=== PATIENT | male | born 1945 | race Caucasian/White ===

== ENCOUNTER 2018-03-22 17:46 | Inpatient (IN) | payer OTHER ==
[~2018-03-22] VITALS: Ht 172.7 cm; Wt 70.8 kg
[2018-03-22 17:48] VITALS: BP_SYST 79; BP_SYST 90; BP_DIAS 40; BP_DIAS 54
[2018-03-22] MEDS ORDERED: NACL 0.9% 500 ML IV SCH (17:54)
[2018-03-22 18:27] LABS: BASOPHILS % (AUTO) 0.1 % (0.0-2.0); LYMPHOCYTES # (AUTO) 0.9 K/uL (2.0-11.5); LYMPHOCYTES % (AUTO) 11.4 % (20.5-51.1); MEAN CORPUSCULAR HEMOGLOBIN 33 pg (27-31); MEAN CORPUSCULAR HGB CONC 34 g/dL (33-37); MEAN CORPUSCULAR VOLUME 97.7 fL (80-94); MONOCYTES # (AUTO) 0.3 K/uL (0.8-1.0); MONOCYTES % (AUTO) 4.1 % (1.7-9.3); NEUTROPHILS # (AUTO) 6.5 K/uL (1.8-7.7); NEUTROPHILS % (AUTO) 84.4 % (42.2-75.2); PLATELET COUNT (AUTO) 73 K/uL (140-450); RED BLOOD CELL COUNT(AUTO) 1.22 MIL/uL (4.20-6.10); RED CELL DISTRIBUTION WIDTH 16.4 % (11.6-13.7); WHITE BLOOD COUNT (AUTO) 7.7 K/uL (4.8-10.8)
[2018-03-22 18:47] LABS: ANION GAP 15.8 (8-16); CARBON DIOXIDE 19.4 mmol/L (21-32); CREATININE 1.5 mg/dL (0.7-1.3); POTASSIUM 4.2 mmol/L (3.5-5.1)
[2018-03-22 18:48] LABS: HEMATOCRIT 11.9 % (36-52)
[2018-03-22 18:52] LABS: ALBUMIN 2.3 g/dL (3.4-5.0); PROTHROMBIN TIME 12.1 secs (10.8-13.4); TOTAL BILIRUBIN 0.3 mg/dL (0.0-1.0)
[2018-03-22] MEDS ORDERED: NACL 0.9% 500 ML IV ONE (18:55)
[2018-03-22] MEDS ORDERED: NACL 0.9% 1,500 ML IV ONE (19:10)
[2018-03-22] MEDS ORDERED: PIPERACILLIN/TAZOBACTAM 3.375 GM in DEXTROSE 5% 50 ML IV ONE (19:10)
[2018-03-22] MEDS ORDERED: PIPERACILLIN/TAZOBACTAM 3.375 GM VIAL IV ONE (19:25)
[2018-03-22 22:46] VITALS: BP 107/47
[2018-03-22 22:54] LABS: APPEARANCE,URINE CLEAR (CLEAR); BILIRUBIN,URINE NEGATIVE (NEGATIVE); BLOOD, URINE NEGATIVE (NEGATIVE); COLOR,URINE YELLOW (YELLOW); LEUKOCYTE ESTERASE ,URINE NEGATIVE (NEGATIVE); NITRITE, URINE NEGATIVE (NEGATIVE); PH,URINE 5.5 (5.0-9.0); UGLUCOSE 2+ (NEGATIVE)
[2018-03-22] MEDS ORDERED: TEMAZEPAM 15 MG CAP PO PRN (23:50)
[2018-03-22] MEDS ORDERED: ACETAMINOPHEN 325 MG TAB PO PRN (23:50)
[2018-03-22] MEDS ORDERED: PNEUMOCOCCAL VACCINE 23 MCG/0.5 ML VIAL IMVAC PRN (23:55)
[2018-03-23] VITALS (8 sets, daily range): BP systolic 84–149; BP diastolic 37–60
[2018-03-23] MEDS ORDERED: CALCIUM CARBONATE 500 MG TAB.CHEW PO SCH (03:00)
[2018-03-23] MEDS: NACL 0.45% 1,000 ML IV SCH ×2 (05:24→15:49)
[2018-03-23 07:29] LABS: BASOPHILS % (AUTO) 0.2 % (0.0-2.0); EOSINOPHILS % (AUTO) 0.1 % (0.0-4.0); LYMPHOCYTES # (AUTO) 1.4 K/uL (2.0-11.5); LYMPHOCYTES % (AUTO) 14.4 % (20.5-51.1); MEAN CORPUSCULAR HEMOGLOBIN 30 pg (27-31); MEAN CORPUSCULAR HGB CONC 34 g/dL (33-37); MEAN CORPUSCULAR VOLUME 90.4 fL (80-94); MONOCYTES # (AUTO) 0.8 K/uL (0.8-1.0); MONOCYTES % (AUTO) 8.1 % (1.7-9.3); NEUTROPHILS # (AUTO) 7.6 K/uL (1.8-7.7); NEUTROPHILS % (AUTO) 77.2 % (42.2-75.2); PLATELET COUNT (AUTO) 60 K/uL (140-450); RED BLOOD CELL COUNT(AUTO) 1.84 MIL/uL (4.20-6.10); WHITE BLOOD COUNT (AUTO) 9.8 K/uL (4.8-10.8)
[2018-03-23 07:41] LABS: HEMATOCRIT 16.6 % (36-52); HEMOGLOBIN 5.6 g/dL (12.0-18.0)
[2018-03-23] MEDS ORDERED: RANOLAZINE 500 MG TER PO SCH (09:00)
[2018-03-23] MEDS ORDERED: PANTOPRAZOLE 40 MG INJ VIAL ONE (11:40)
[2018-03-23] MEDS: PANTOPRAZOLE 80 MG in NACL 0.9% 100 ML IV SCH ×2 (15:47→20:00)
[2018-03-23 17:49] LABS: HEMATOCRIT 22.1 % (36-52); HEMOGLOBIN 7.3 g/dL (12.0-18.0)
[2018-03-23] MEDS: LACTULOSE 20 GM/30 ML UDC PO SCH (21:04)
[2018-03-23] MEDS: TEMAZEPAM 15 MG CAP PO PRN (23:55)
[2018-03-24] MEDS: NACL 0.45% 1,000 ML IV SCH ×3 (01:53→22:04)
[2018-03-24 02:43] LABS: HEMATOCRIT 24.1 % (36-52)
[2018-03-24 04:44] VITALS: BP 137/68
[2018-03-24] MEDS: PANTOPRAZOLE 80 MG in NACL 0.9% 100 ML IV SCH (05:24)
[2018-03-24 07:17] LABS: HEMATOCRIT 24.2 % (36-52)
[2018-03-24 07:45] VITALS: BP 145/59
[2018-03-24] MEDS: LACTULOSE 20 GM/30 ML UDC PO SCH ×2 (09:12→21:23)
[2018-03-24] MEDS ORDERED: fentaNYL 0.05 MG/ML VIAL ONE (09:49)
[2018-03-24] MEDS ORDERED: MIDAZOLAM 2 MG/2 ML VIAL ONE (09:49)
[2018-03-24 12:00] VITALS: BP 139/43
[2018-03-24 12:31] LABS: HEMATOCRIT 25.2 % (36-52); HEMOGLOBIN 8.6 g/dL (12.0-18.0)
[2018-03-24] MEDS ORDERED: fentaNYL 0.05 MG/ML VIAL IVP ONE (12:45)
[2018-03-24] MEDS ORDERED: MIDAZOLAM 2 MG/2 ML VIAL IVP ONE (12:45)
[2018-03-24] MEDS: FERROUS SULFATE 325 MG TABEC PO SCH ×2 (12:47→16:21)
[2018-03-24] MEDS: SUCRALFATE 1 GM TAB PO SCH ×3 (12:48→21:22)
[2018-03-24 16:00] VITALS: BP 151/56
[2018-03-24 17:57] LABS: HEMATOCRIT 26.4 % (36-52); HEMOGLOBIN 8.8 g/dL (12.0-18.0)
[2018-03-24 20:18] VITALS: BP 155/66
[2018-03-24] MEDS: PANTOPRAZOLE 40 MG INJ VIAL IVP SCH (21:22)
[2018-03-24] MEDS: TEMAZEPAM 15 MG CAP PO PRN (21:23)
[2018-03-25 00:15] VITALS: BP 126/73
[2018-03-25 01:01] LABS: HEMATOCRIT 24.2 % (36-52); HEMOGLOBIN 8.1 g/dL (12.0-18.0)
[2018-03-25 04:22] VITALS: BP 131/70
[2018-03-25 07:12] LABS: BASOPHILS % (AUTO) 0.4 % (0.0-2.0); EOSINOPHILS # (AUTO) 0.1 K/uL (0-0.4); EOSINOPHILS % (AUTO) 1.6 % (0.0-4.0); HEMOGLOBIN 9.3 g/dL (12.0-18.0); LYMPHOCYTES # (AUTO) 1.2 K/uL (2.0-11.5); LYMPHOCYTES % (AUTO) 15.8 % (20.5-51.1); MEAN CORPUSCULAR HEMOGLOBIN 30 pg (27-31); MEAN CORPUSCULAR HGB CONC 33 g/dL (33-37); MONOCYTES # (AUTO) 0.7 K/uL (0.8-1.0); MONOCYTES % (AUTO) 8.6 % (1.7-9.3); NEUTROPHILS # (AUTO) 5.5 K/uL (1.8-7.7); NEUTROPHILS % (AUTO) 73.6 % (42.2-75.2); PLATELET COUNT (AUTO) 86 K/uL (140-450); RED BLOOD CELL COUNT(AUTO) 3.08 MIL/uL (4.20-6.10); RED CELL DISTRIBUTION WIDTH 16.3 % (11.6-13.7); WHITE BLOOD COUNT (AUTO) 7.5 K/uL (4.8-10.8)
[2018-03-25] MEDS: NACL 0.45% 1,000 ML IV SCH ×3 (07:53→22:14)
[2018-03-25 07:56] LABS: ALBUMIN 2.7 g/dL (3.4-5.0); ANION GAP 11.4 (8-16); CARBON DIOXIDE 24.8 mmol/L (21-32); CREATININE 0.9 mg/dL (0.7-1.3); POTASSIUM 3.2 mmol/L (3.5-5.1); TOTAL BILIRUBIN 0.9 mg/dL (0.0-1.0)
[2018-03-25 08:00] VITALS: BP 148/62
[2018-03-25] MEDS ORDERED: POTASSIUM CHLORIDE 10 MEQ TABER PO SCH (08:30)
[2018-03-25] MEDS: FERROUS SULFATE 325 MG TABEC PO SCH ×3 (08:49→16:35)
[2018-03-25] MEDS: SENNA 8.6 MG TAB PO SCH (08:50)
[2018-03-25] MEDS: SUCRALFATE 1 GM TAB PO SCH ×4 (08:50→20:07)
[2018-03-25] MEDS: PANTOPRAZOLE 40 MG INJ VIAL IVP SCH (08:50)
[2018-03-25] MEDS: LACTULOSE 20 GM/30 ML UDC PO SCH (08:50)
[2018-03-25 09:14] LABS: HEMATOCRIT 26.5 % (36-52); HEMOGLOBIN 8.7 g/dL (12.0-18.0)
[2018-03-25 12:00] VITALS: BP 146/59
[2018-03-25 16:00] VITALS: BP 152/77
[2018-03-25 20:00] VITALS: BP 148/77
[2018-03-25] MEDS: CARVEDILOL 3.125 MG TAB PO SCH (20:07)
[2018-03-25] MEDS: PANTOPRAZOLE 40 MG TABEC PO SCH (20:08)
[2018-03-25] MEDS ORDERED: ATORVASTATIN 20 MG TAB PO SCH (21:00)
[2018-03-25 21:35] LABS: HEMATOCRIT 26.8 % (36-52); HEMOGLOBIN 8.9 g/dL (12.0-18.0)
[2018-03-25] MEDS: TEMAZEPAM 15 MG CAP PO PRN (22:31)
[2018-03-26] VITALS: BP 115/64
[2018-03-26 04:00] VITALS: BP 115/67
[2018-03-26 06:01] LABS: BASOPHILS % (AUTO) 0.3 % (0.0-2.0); EOSINOPHILS # (AUTO) 0.2 K/uL (0-0.4); EOSINOPHILS % (AUTO) 2.4 % (0.0-4.0); HEMATOCRIT 25.1 % (36-52); HEMOGLOBIN 8.3 g/dL (12.0-18.0); LYMPHOCYTES % (AUTO) 15.3 % (20.5-51.1); MEAN CORPUSCULAR HEMOGLOBIN 31 pg (27-31); MEAN CORPUSCULAR HGB CONC 33 g/dL (33-37); MONOCYTES # (AUTO) 0.6 K/uL (0.8-1.0); MONOCYTES % (AUTO) 8.8 % (1.7-9.3); NEUTROPHILS # (AUTO) 4.8 K/uL (1.8-7.7); NEUTROPHILS % (AUTO) 73.2 % (42.2-75.2); PLATELET COUNT (AUTO) 91 K/uL (140-450); RED BLOOD CELL COUNT(AUTO) 2.73 MIL/uL (4.20-6.10); RED CELL DISTRIBUTION WIDTH 16.7 % (11.6-13.7); WHITE BLOOD COUNT (AUTO) 6.6 K/uL (4.8-10.8)
[2018-03-26 07:07] LABS: ALBUMIN 2.4 g/dL (3.4-5.0); ANION GAP 9.1 (8-16); CARBON DIOXIDE 25.7 mmol/L (21-32); CREATININE 0.9 mg/dL (0.7-1.3); POTASSIUM 3.8 mmol/L (3.5-5.1); TOTAL BILIRUBIN 0.8 mg/dL (0.0-1.0)
[2018-03-26 08:00] VITALS: BP 136/83
[2018-03-26] MEDS: NACL 0.45% 1,000 ML IV SCH (08:22)
[2018-03-26] MEDS: FERROUS SULFATE 325 MG TABEC PO SCH ×2 (08:23→12:11)
[2018-03-26] MEDS: SUCRALFATE 1 GM TAB PO SCH ×2 (08:23→12:11)
[2018-03-26] MEDS: SENNA 8.6 MG TAB PO SCH (08:23)
[2018-03-26] MEDS: PANTOPRAZOLE 40 MG TABEC PO SCH (08:23)
[2018-03-26] MEDS: CARVEDILOL 3.125 MG TAB PO SCH (08:24)
[2018-03-26] MEDS ORDERED: SUCR1TAB56 PO (08:55)
[2018-03-26] MEDS ORDERED: PANT40EC28 PO (08:55)
[2018-03-26] MEDS ORDERED: LACTULOSE 20 GM/30 ML UDC PO SCH (09:00)
[2018-03-26 09:52] LABS: HEMATOCRIT 26.3 % (36-52); HEMOGLOBIN 8.6 g/dL (12.0-18.0)
[2018-03-26 12:00] VITALS: BP 153/81
== END 2018-03-26 14:20 | disposition home or self-care (01) | DRG 377 ==
LOC: MED 17:46 → MTU 21:13
PROVIDERS: ADMIT Internal Medicine; ATTEND Internal Medicine
PROC: 30233N1 Transfusion of Nonautologous Red Blood Cells into Peripheral Vein, Percutaneous Approach (ICD-10-PCS; principal; 2018-03-22)
PROC: 0W3P8ZZ Control Bleeding in Gastrointestinal Tract, Via Natural or Artificial Opening Endoscopic (ICD-10-PCS; 2018-03-24 10:00)
DX: K28.4 Chronic or unspecified gastrojejunal ulcer with hemorrhage (principal); E43 Unspecified severe protein-calorie malnutrition; I21.A1 Myocardial infarction type 2; D62 Acute posthemorrhagic anemia; I95.9 Hypotension, unspecified; D69.6 Thrombocytopenia, unspecified; E86.0 Dehydration; D64.9 Anemia, unspecified; I45.10 Unspecified right bundle-branch block; E78.5 Hyperlipidemia, unspecified; K21.9 Gastro-esophageal reflux disease without esophagitis; I25.10 Atherosclerotic heart disease of native coronary artery without angina pectoris; I10 Essential (primary) hypertension; Z85.07 Personal history of malignant neoplasm of pancreas; Z87.11 Personal history of peptic ulcer disease; Z95.1 Presence of aortocoronary bypass graft; Z95.2 Presence of prosthetic heart valve; Z90.411 Acquired partial absence of pancreas; Z95.5 Presence of coronary angioplasty implant and graft; I25.2 Old myocardial infarction; Z93.4 Other artificial openings of gastrointestinal tract status; Z79.82 Long term (current) use of aspirin; Z86.79 Personal history of other diseases of the circulatory system; Z68.23 Body mass index [BMI] 23.0-23.9, adult
CPT/HCPCS: 36415; 71045; 80053; 81003; 82607; 82728; 82746; 83540; 83605; 83880; 84484; 85018; 85025; 85610; 85730; 86677; 86886; 86900; 86901; 86920; 87040; 87086; 90732; 93005; 96361; 96365; 99285; C9113; J2250; J2543; J3010; J7030; P9016; Q0092

== ENCOUNTER 2020-01-04 15:09 | Emergency (ER) | payer OTHER ==
[~2020-01-04] VITALS: Ht 175.3 cm; Wt 68.0 kg
[~2020-01-04 15:09] MED LIST: PANT40EC56 PO; SUCR1TAB56 PO
[2020-01-04 15:12] VITALS: BP 145/109
--- NOTE | 2020-01-04 15:18 | NUR ---
PT AMBULATED TO BED 4.
--- NOTE | 2020-01-04 15:20 | NUR ---
Pt c/o left arm mole started to bleed today as per pt. Wound dry, clean, and slight bleeding at this time. Patient denies having any pain on the wound area. hx--angina, cad, htn, neuropathy, remission pancreatic ca AAOX4 WITH EVEN AND STEADY GAIT; HR EVEN AND REGULAR; PT DENIES ANY FEVER, CP, SOB, OR COUGH AT THIS TIME; PATIENT STATES PAIN OF 0/10 AT THIS TIME; VSS; PATIENT POSITIONED FOR COMFORT; HOB ELEVATED; BEDRAILS UP X1; BED DOWN. ER MD MADE AWARE OF PT STATUS.
[2020-01-04] MEDS ORDERED: TRANEXAMIC ACID 1,000 MG/10 ML VIAL MC ONE (15:55)
[2020-01-04 16:48] VITALS: BP 135/91
--- NOTE | 2020-01-04 16:48 | NUR ---
Patient discharged with v/s stable. Written and verbal after care instructions given and explained. Patient verbalized understanding. Ambulatory with steady gait. All questions addressed prior to discharge. Advised to follow up with PMD. Addendum: 01/04/20 at 1649 by MED Amendment undone in ED - 01/04/20 at 1650 by MED PT'S WOUND ON LEFT FOREARM IS COVERED WITH DRESSING AND WARPED. Addendum: 01/04/20 at 1650 by MEDeOriginal PT'S WOUND ON LEFT FOREARM IS COVERED WITH DRESSING AND WRAPED.
== END 2020-01-04 16:50 | disposition home or self-care (01) ==
LOC: MED 15:09
DX: S51.802A Unspecified open wound of left forearm, initial encounter (principal); I11.0 Hypertensive heart disease with heart failure; Z85.07 Personal history of malignant neoplasm of pancreas; W22.8XXA Striking against or struck by other objects, initial encounter; Y93.89 Activity, other specified; Y92.89 Other specified places as the place of occurrence of the external cause; Y99.8 Other external cause status; Z79.899 Other long term (current) drug therapy
CPT/HCPCS: 99283; J3490; 99282

== ENCOUNTER 2020-06-07 22:55 | Observation (INO) | payer OTHER, SELFPAY ==
[~2020-06-07] VITALS: Ht 175.3 cm; Wt 68.0 kg
[~2020-06-07 22:55] MED LIST changes: +ACET-2619 PO; +AMLO5TAB PO; +ASPI-1822 PO; +FERR-252 PO; +GABA100C PO; +LISI2.5T12 PO; -PANT40EC56 PO; +RANEX500 PO; -SUCR1TAB56 PO; +TRA200 PO
--- NOTE | 2020-06-07 22:55 | NUR ---
PT ROLF ALS. TAKEN TO BED 9
[2020-06-07 22:58] VITALS: BP 157/71
--- NOTE | 2020-06-07 23:02 | NUR ---
74 YR OLD MALE BIBA FOR CC OF CHEST PAIN. PT IS AOX4. PT STATES 7/10 NON-RADIATING THROBBING CHEST PAIN THAT STARTED APPROXIMATELY 4-6 HOURS AGO. PT STATES TAKING 3 NITRO TABLETS BEFORE EMS ARRIVAL WITH NO RELIEF. PER EMS, EMS STATES ADMINISTERING AN ADDITIONAL NITRO WITH NO CHANGE. EMS STATES ADMINISTERED 4 81MG OF ASPIRIN. PT HEART SOUNDS WNL. PT DENIES OTHER MEDICAL COMPLAINTS. BED LOCKED IN LOWEST POSITION WITH 2 SIDE RAILS UP FOR SAFETY. WILL CONTINUE TO MONITOR. HISTORY- CA X 2, THORACIC ANUERYSM, PANCREATIC CA, AND HTN ALLERGIES- NONE
--- NOTE | 2020-06-07 23:20 | NUR ---
DEBO Padilla at bedside for medical evaluation.
--- NOTE | 2020-06-07 23:21 | NUR ---
EKG PERFORMED AT BEDSIDE. EKG READS SINUS RHYTHM @ 69
[2020-06-07] MEDS ORDERED: NITROGLYCERIN 0.4 MG TAB SL ONE (23:25)
[2020-06-07] MEDS ORDERED: MORPHINE SULFATE 4 MG/ML SYR IVP ONE (23:25)
[2020-06-07] MEDS ORDERED: ASPIRIN 81 MG TAB.CHEW PO ONE (23:25)
--- NOTE | 2020-06-07 23:31 | NUR ---
Xray at bedside.
[2020-06-07 23:44] LABS: BASOPHILS % (AUTO) 0.4 % (0.0-2.0); EOSINOPHILS # (AUTO) 0.1 K/uL (0-0.4); EOSINOPHILS % (AUTO) 1.3 % (0.0-4.0); HEMATOCRIT 28.5 % (36-52); HEMOGLOBIN 9.9 g/dL (12.0-18.0); LYMPHOCYTES % (AUTO) 20.8 % (20.5-51.1); MEAN CORPUSCULAR HEMOGLOBIN 36 pg (27-31); MEAN CORPUSCULAR HGB CONC 35 g/dL (33-37); MEAN CORPUSCULAR VOLUME 104.2 fL (80-94); MONOCYTES # (AUTO) 0.4 K/uL (0.8-1.0); MONOCYTES % (AUTO) 8.4 % (1.7-9.3); NEUTROPHILS # (AUTO) 3.4 K/uL (1.8-7.7); NEUTROPHILS % (AUTO) 69.1 % (42.2-75.2); PLATELET COUNT (AUTO) 130 K/uL (140-450); RED BLOOD CELL COUNT(AUTO) 2.74 MIL/uL (4.20-6.10); RED CELL DISTRIBUTION WIDTH 13.4 % (11.6-13.7); WHITE BLOOD COUNT (AUTO) 4.9 K/uL (4.8-10.8)
[2020-06-07 23:56] LABS: PROTHROMBIN TIME 11.3 secs (10.8-13.4)
--- NOTE | 2020-06-08 01:00 | NUR ---
PT WAS FOUND IN SEMI-CORRIGAN'S POSITION IN BED. PT STATES CHEST PAIN IS "A LITTLE BETTER" AND RATES IT 6/10. PT STATES NO OTHER MEDICAL COMPLAINTS. BED LOCKED IN LOWEST POSITION WITH 2 SIDE RAILS UP FOR SAFETY. WILL CONTINUE TO MONITOR.
[2020-06-08 01:06] LABS: ALBUMIN 3.8 g/dL (3.4-5.0); ANION GAP 14.9 (8-16); ASPARTATE AMINOTRANSFERASE 10 U/L (15-37); CARBON DIOXIDE 23.2 mmol/L (21-32); CHLORIDE 103 mmol/L (98-107); GLUCOSE 89 mg/dL (74-106); POTASSIUM 4.1 mmol/L (3.5-5.1); SODIUM SERUM 137 mmol/L (136-145); TOTAL BILIRUBIN 0.8 mg/dL (0.0-1.0); UREA NITROGEN, BLOOD 16 mg/dL (7-18)
[2020-06-08] MEDS ORDERED: TEMA15CA24 PO (02:18)
[2020-06-08] MEDS ORDERED: ATOR20TA PO (02:18)
[2020-06-08] MEDS ORDERED: hydrALAZINE 20 MG/ML VIAL IVP ONE (03:25)
--- NOTE | 2020-06-08 03:30 | NUR ---
EMT AT BEDSIDE FOR EKG.
--- NOTE | 2020-06-08 03:30 | NUR ---
PT WAS FOUND IN SEMI-CORRIGAN'S POSITION IN BED. PT STATES CHEST PAIN IS 5/10. PT STATES NO OTHER MEDICAL COMPLAINTS. BED LOCKED IN LOWEST POSITION WITH 2 SIDE RAILS UP FOR SAFETY. WILL CONTINUE TO MONITOR.
--- NOTE | 2020-06-08 03:36 | NUR ---
HANDMADE TILE ARTIST AT BEDSIDE.
--- NOTE | 2020-06-08 03:38 | NUR ---
EKG PERFORMED AT BEDSIDE. EKG READS SINUS RHYTHM @ 57
--- NOTE | 2020-06-08 04:00 | NUR ---
PT FOUND AWAKE IN SEMI-CORRIGAN'S POSITION IN BED. PT STATES 7/10 NON-RADIATING CHEST PAIN. PT STATES 8/10 NON-RADIATING BACK PAIN. ERMD AWARE.
[2020-06-08] MEDS ORDERED: HYDROcodone/APAP 5/325 MG 1 TAB TAB PO ONE (04:10)
--- NOTE | 2020-06-08 04:45 | NUR ---
PT FOUND AWAKE IN SEMI-CORRIGAN'S POSITION IN BED. PT STATES 5/10 NON-RADIATING CHEST PAIN. PT STATES 5/10 NON-RADIATING BACK PAIN. PT STATES CHEST AND BACK PAIN IS BETTER. PT WAS PROVIDED CHERRY.
--- NOTE | 2020-06-08 05:20 | NUR ---
PT STATES UNABLE TO SLEEP AND HAS LEG TWITCHING. DR. CORTEZ CONTACTED AND WAS UPDATED ON PT STATUS.
[2020-06-08] MEDS ORDERED: TEMAZEPAM 15 MG CAP PO ONE ×2 (05:40→23:10)
--- NOTE | 2020-06-08 06:47 | NUR ---
PT FOUND AWAKE IN SEMI-CORRIGAN'S POSITION IN BED. PT STATES CHEST AND BACK PAIN IS BETTER AND RATES CHEST AND BACK PAIN 4/10. PT DENIES OTHER MEDICAL COMPLAINTS. PT WAS PROVIDED A URINAL. BED LOCKED IN LOWEST POSITION WITH 2 SIDE RAILS UP FOR SAFETY.
--- NOTE | 2020-06-08 07:10 | NUR ---
TRANSFER OF CARE REPORT PROVIDED TO TRIP RITTER.
--- NOTE | 2020-06-08 07:50 | NUR ---
CALLED REPORT TO ARSH RITTER. WILL BE TAKING TO FLOOR SHORTLY.
--- NOTE | 2020-06-08 08:21 | NUR ---
Patient will be admitted to care of REMI V[facility]IL. Admited to TELEMETRY. Will go to [facility]. Belongings list completed. Report to ARSH RITTER.
[2020-06-08 08:25] VITALS: BP 121/72
--- NOTE | 2020-06-08 08:25 | NUR ---
RECEIVED PT FROM ED. PT RESTING IN BED. ABLE TO MAKE NEEDS KNOWN. RESPIRATIONS EVEN AND UNLABORED WITH NO SOB OR RESPIRATORY DISTRESS. IV SITE IN L ARM 20G IS CLEAN, DRY, AND INTACT. PT COMPLAINED OF IV PAIN IN RFA 22G, REMOVED INTACT IV CANNULA. PT TOLERATED WELL. MRSA SWAB COLLECTED. SAFETY MEASURES IN PLACE. WILL CONTINUE TO MONITOR
--- NOTE | 2020-06-08 11:30 | NUR ---
DC SOCIAL WORK PROGRAM COORDINATOR: SPOKE TO PATIENTS DAUGHTER SADA DANGELO [phone] SHE IS ABLE TO ARRANGE TRANSPORTATION FOR PATIENT WHEN PATIENT IS READY FOR DC. SHE WILL SET UP WITH AN UBER OR LYFT. NOTIFIED RIYA CABAN. Addendum: 06/09/20 at 1044 by Sammie Frederick CM DC SOCIAL WORK PROGRAM COORDINATOR: NOTIFIED RIYA LENNON THAT SHE CAN CONTACT PATIENTS DAUGHTER TO ARRANGE TRANSPORTATION
--- NOTE | 2020-06-08 11:55 | NUR ---
SOCIAL WORK NOTE: Patient's Orientation Person Situation Place Time Information Provided By PATIENT Comments SW WAS UNABLE TO MEET PATIENT AT BEDSIDE. SW COMPLETED ASSESSMENT WITH PATIENT TELEPHONICALLY. PATIENT STATED THAT HIS DAUGHTER WOULD BE PRIMARY POINT OF CONTACT. Healthcare Financial Analyst, Realtionship and Phone Number SADA DANGELO DAUGHTER [phone] [facility] Power of Assault Amphibious Vehicle Officer No Does Patient Have a POLST No Identifying Problems No Social Work Triggers Is A Social Work Consult Needed No Mandate Report Filed No Explanation Of Identifying Problems PATIENT IS A 74-YEAR-OLD MALE ADMITTED FOR CHEST PAIN. PATIENT HAS PMHX OF CAD, NE, AND HYPERTENSION. PATIENT STATED THAT HE LIVES AT [facility]. Admitted From Home Pre-Admission Level Of Functioning Status Independent/Ambulatory Prior Resources/Services Used In Last 12 Months No Prior Resources Used Prior DME No Prior DME Used Dialysis Comments N/A Living Situation Asst'd Living/Board &Care Other Living Situation/Comment PATIENT IS A RESIDENT OF [facility]. Patient Had Caregiver No Home Support No Caregiver Issues Financial Issues No Known Financial Issue Referral To The Financial Counselor Needed No Factors/Needs No D/C Needs Identified Pt/Rep Participated In Discharge Plan Yes Patient/Family Agress With Discharge Plan Yes Discharge Plan Comments TENTATIVE DISCHARGE PLAN IS FOR PATIENT TO RETURN HOME. DC Plan Status Initiated
[2020-06-08 13:37] VITALS: BP 162/74
[2020-06-08 16:00] VITALS: BP 191/84
[2020-06-08] MEDS ORDERED: LABETALOL 100 MG/20 ML VIAL IVP SCH (16:02)
--- NOTE | 2020-06-08 16:21 | NUR ---
PATIENT HAS BEEN SCREENED AND CATEGORIZED LOW NUTRITION RISK. PATIENT WILL BE SEEN WITHIN 7 DAYS OF ADMISSION. 06/14/[address]
--- NOTE | 2020-06-08 16:27 | NUR ---
NOTIFIED DR. Milo ARRIAGA REGARDING HIGH BP-191/86. HE ORDERED LABETALOL IV , WILL CONTINUE TO MONITOR. NOTIFIED DR. CORTEZ ALSO AND OK TO DC PATIENT TOMORROW IF BP IS CONTROL.
[2020-06-08] MEDS: amLODIPine 5 MG TAB PO SCH (17:11)
[2020-06-08 17:53] VITALS: BP 125/81
[2020-06-08] MEDS ORDERED: ACETAMINOPHEN 650 MG/20.3 ML UDC PO PRN (18:20)
--- NOTE | 2020-06-08 18:46 | NUR ---
PT COMPLAINED OF MILD PAIN. PRN TYLENOL ADMINISTERED PRESCRIBED PER MD ORDER. PT TOLERATED WELL. SAFETY MEASURES IN PLACE. WILL CONTINUE TO MONITOR
--- NOTE | 2020-06-08 19:40 | NUR ---
ENDORSED TO NIGHTSHIFT FOR CONTINUITY OF CARE. PT IS STABLE
--- NOTE | 2020-06-08 19:45 | NUR ---
RECEIVED REPORT FROM ARSH RITTER DAYSHIFT NURSE AT BEDSIDE FOR CONTINUITY OF CARE, PT IN STABLE CONDITION.
[2020-06-08 20:00] VITALS: BP 175/87
--- NOTE | 2020-06-08 20:00 | NUR ---
PT SITTING UP IN BED ON ROOM AIR WITH C/O OF 4/10 CHEST PAIN V/S FOLLOWS: T 97.5 P 68 R 16 B/P 161/87 02 98%. IV SITE LEFT F/A 20G INTACT AND ASYMPTOMATIC.
[2020-06-08] MEDS: LABETALOL 200 MG TAB PO SCH (20:19)
[2020-06-08] MEDS: RANOLAZINE 500 MG TER PO SCH (20:20)
--- NOTE | 2020-06-08 20:30 | NUR ---
RETAKE OF B/P IS 175/87 P 68. PT GIVEN ORDERED RANEXA AND LABETALOL EDUCATION REGARDING MEDICATION PROVIDED AT BEDSIDE. PT VERBALIZED UNDERSTANDING. ALL REQUESTED NEEDS ATTENDED AND ALL UNIVERSAL FALLS PRECAUTIONS IN PLACE. WILL RECHECK B/P AND MONITOR CHEST PAIN.
--- NOTE | 2020-06-08 21:30 | NUR ---
RETAKE OF B/P 106/64 02 99 P 64
--- NOTE | 2020-06-08 22:00 | NUR ---
PT C/O NOT BEING ABLE TO SLEEP AND IS REQUESTING HIS AT HOME MEDICATION OF RESTORIL 30MG. WILL TEXT MD WITH PT REQUEST.
--- NOTE | 2020-06-08 23:30 | NUR ---
SPOKE WITH BUTTON GRADER MD LANDEROS TO CONTINUE WITH RESTORIL 30MG. PT GIVEN ORDERED PO RESTORIL.
[2020-06-09] VITALS: BP 112/68
--- NOTE | 2020-06-09 | NUR ---
PT AMBULATED TO TOILET AND BACK , HE PULLED OUT IV SITE. NEW IV SITE PROVIDED ON LEFT F/A G 22. V/S FOLLOWS: T 97.1 P 67 R 16 B/P 100/58 02 99% ON ROOM AIR. ALL UNIVERSAL FALLS PRECAUTIONS IN PLACE.
--- NOTE | 2020-06-09 02:00 | NUR ---
PT IN BED ASLEEP NO C/O VOICED. ALL UNIVERSAL FALLS PREVENTION IN PLACE.
[2020-06-09 04:00] VITALS: BP 94/67
--- NOTE | 2020-06-09 04:00 | NUR ---
PT IN BED V/S FOLLOWS: T 97.0 P 69 R 16 B/P 94/67 02 100% ON ROOM AIR.
[2020-06-09] MEDS ORDERED: PANTOPRAZOLE 40 MG TABEC PO SCH (06:30)
--- NOTE | 2020-06-09 06:30 | NUR ---
PT GIVEN ORDERED PROTONIX EDUCATION REGARDING MEDICATION AND ITS PURPOSE PROVIDED AT BEDSIDE, PT VERBALIZED UNDERSTANDING.
[2020-06-09 08:00] VITALS: BP 129/83
[2020-06-09] MEDS: amLODIPine 5 MG TAB PO SCH (08:10)
[2020-06-09] MEDS: LABETALOL 200 MG TAB PO SCH (08:11)
[2020-06-09] MEDS: RANOLAZINE 500 MG TER PO SCH (08:12)
[2020-06-09] MEDS ORDERED: ATORVASTATIN 20 MG TAB PO SCH (09:00)
[2020-06-09] MEDS ORDERED: lisinopriL 5 MG TAB PO SCH (09:00)
[2020-06-09] MEDS ORDERED: ACET-9525 PO (09:44)
[2020-06-09 12:00] VITALS: BP 112/60
--- NOTE | 2020-06-09 12:50 | NUR ---
Patient discharged home on wheelchair accompanied by me. All belongings returned; IV removed with intact tips; Patient picked up by gas truck driver; patient given paper prescription for [place]; patient given printed aftercare material, verbalizes understanding; patient in stable condition
[2020-06-09] MEDS ORDERED: TEMAZEPAM 15 MG CAP PO SCH (21:00)
== END 2020-06-09 12:55 | disposition home or self-care (01) ==
LOC: MED 22:55 → INTOOBSV 06-08 02:49 → MTU 06-08 02:49 → MMU 06-08 06:11 → MTU 06-08 06:11 → MMU 06-08 06:15
PROVIDERS: ADMIT Internal Medicine; ATTEND Internal Medicine
DX: R07.89 Other chest pain (principal); Z20.822 Contact with and (suspected) exposure to COVID-19; I25.10 Atherosclerotic heart disease of native coronary artery without angina pectoris; I25.2 Old myocardial infarction; I11.9 Hypertensive heart disease without heart failure; E78.5 Hyperlipidemia, unspecified; M47.814 Spondylosis without myelopathy or radiculopathy, thoracic region; M47.816 Spondylosis without myelopathy or radiculopathy, lumbar region; Z87.891 Personal history of nicotine dependence; Z95.818 Presence of other cardiac implants and grafts; Z87.11 Personal history of peptic ulcer disease; Z85.07 Personal history of malignant neoplasm of pancreas; Z79.82 Long term (current) use of aspirin; Z79.899 Other long term (current) drug therapy
CPT/HCPCS: 36415; 71045; 80053; 83880; 84484; 85025; 85610; 85730; 87081; 87426; 93005; 96374; 96375; 99285; G0378; J0360; J2270; J3490